=== PATIENT | male | born 1965 | race Caucasian/White ===

== ENCOUNTER 2022-11-05 13:58 | Outpatient (CLI) | payer BC, SELFPAY ==
[2022-11-05 13:58] LABS: Albumin* 4.4 g/dL (3.3-5.0); Chloride* 102 mmol/L (96-114); Potassium* 4.5 mmol/L (3.6-5.1); Sodium* 140 mmol/L (135-149)
[2022-11-05 14:00] LABS: Cholesterol* 182 mg/dL (90-199); Creatinine* 0.8 mg/dL (0.5-1.5); Estimated Glomerular Filt Rate 102 ml/min
[2022-11-05 14:01] LABS: Alanine Aminotransferase* 21 U/L (4-50); Alkaline Phosphatase* 114 U/L (40-150); Aspartate Amino Transferase* 23 U/L (12-35); Bilirubin Total* 0.4 mg/dL (0.1-1.5); Blood Urea Nitrogen* 19 mg/dL (7-30); Carbon Dioxide* 32 mmol/L (20-32); Glucose* 98 mg/dL (60-115); Total Protein* 7.3 g/dL (6.0-8.3); Triglycerides* 137 mg/dL (40-149)
[2022-11-05 14:02] LABS: Calcium* 8.8 mg/dL (8.4-10.6); HDL Cholesterol* 57 mg/dL (>=40); LDL Cholesterol Calculated 98 mg/dL (<100)
[2022-11-05 14:33] LABS: PSA Screen* 0.89 ng/mL (0.10-4.00)
== END 2022-11-05 13:59 | disposition home or self-care (01) ==
PROVIDERS: PCP Family Medicine; Visit Provider Family Medicine
DX: Z00.00 Encounter for general adult medical examination without abnormal findings (principal); E78.5 Hyperlipidemia, unspecified; E66.9 Obesity, unspecified; G40.909 Epilepsy, unspecified, not intractable, without status epilepticus; F41.1 Generalized anxiety disorder; R33.9 Retention of urine, unspecified; Z12.5 Encounter for screening for malignant neoplasm of prostate
CPT/HCPCS: 80053; 80061; 84153

== ENCOUNTER 2023-06-23 13:15 | Outpatient (CLI) | payer BC, SELFPAY | END 2023-06-23 13:16 | disposition home or self-care (01) | PROVIDERS: PCP Family Medicine; Visit Provider Family Medicine | DX: R19.7 Diarrhea, unspecified (principal) | CPT/HCPCS: 83516; 86140; 86592; 86593; 86703; 86705; 86803; 87340; 87491; 87591 ==

== ENCOUNTER 2023-07-14 11:31 | Outpatient (CLI) | payer BC, SELFPAY ==
--- NOTE | 2023-07-14 07:54 | W.ANESCHARGE ---
Anesthesia Charges Start Date/Time Anesthesia Start Date: 07/14/23 Anesthesia Start Time: 12:17 Stop Date/Time Anesthesia Stop Date: 07/14/23 Anesthesia Stop Time: 13:12
--- NOTE | 2023-07-14 13:17 | W.ANESCHARGE ---
Anesthesia Charges Start Date/Time Anesthesia Start Date: 07/14/23 Anesthesia Start Time: 12:17 Stop Date/Time Anesthesia Stop Date: 07/14/23 Anesthesia Stop Time: 13:12
== END 2023-07-14 11:32 | disposition home or self-care (01) ==
LOC: OP CLINIC 11:32
PROVIDERS: PCP Family Medicine; Visit Provider Surgery
DX: Z12.11 Encounter for screening for malignant neoplasm of colon (principal); K63.5 Polyp of colon; K62.89 Other specified diseases of anus and rectum; Z86.010 Personal history of colon polyps
CPT/HCPCS: 45380; 45385; 811; 88305; 88342; J2704

== ENCOUNTER 2023-10-14 07:38 | Outpatient (CLI) | payer BC, SELFPAY | END 2023-10-14 07:39 | disposition home or self-care (01) | LOC: NFLDREF 22:53 | PROVIDERS: PCP Family Medicine; Referring Provider Family Medicine; Visit Provider Family Medicine | DX: Z00.00 Encounter for general adult medical examination without abnormal findings (principal); E78.5 Hyperlipidemia, unspecified; G40.909 Epilepsy, unspecified, not intractable, without status epilepticus; R33.9 Retention of urine, unspecified; Z12.5 Encounter for screening for malignant neoplasm of prostate | CPT/HCPCS: 80053; 80061; 80156; 84153 ==

== ENCOUNTER 2024-01-08 16:58 | Emergency (ER) | payer BC, SELFPAY ==
[2024-01-08 17:09] VITALS: BP 111/66; PULSE 72; RESP 16; TEMP 36.6; O2SAT 96; BMI 27.4
--- NOTE | 2024-01-08 17:22 | CRLHL7_ITS ---
For Patients: As a result of the Century Cures Act, medical imaging exams and procedure reports are released immediately into your electronic medical record. You may view this report before your referring provider. If you have questions, please contact your health care provider. INDICATION: Left leg pain and swelling. TECHNIQUE: Ultrasound venous duplex left lower extremity. Compression venous exam was performed using moreno-scale, color Doppler, and spectral Doppler analysis. COMPARISON: None. FINDINGS: RIGHT LOWER EXTREMITY: Common Femoral Vein: Fully compressible and demonstrates normal flow on color doppler imaging. LEFT LOWER EXTREMITY: Common Femoral Vein: Fully compressible and demonstrates normal flow on color doppler imaging. Deep Femoral Profunda Vein: Fully compressible and demonstrates normal flow on color doppler imaging. Proximal Superficial Femoral Vein: Fully compressible and demonstrates normal flow on color doppler imaging. Mid Superficial Femoral Vein: Fully compressible and demonstrates normal flow on color doppler imaging. Distal Superficial Femoral Vein: Fully compressible and demonstrates normal flow on color doppler imaging. Popliteal Vein: Fully compressible and demonstrates normal flow on color doppler imaging. Lower Calf: The posterior tibial and peroneal veins are fully compressible and demonstrate normal flow on color doppler imaging. Superficial Vein: The proximal greater saphenous vein it is not fully compressible 8 mm from the left common femoral vein Popliteal Fossa: No popliteal cyst. IMPRESSION: 1. Superficial thrombophlebitis within the proximal greater saphenous vein. 2. No deep vein thrombus within the right lower extremity. Dictated by Sebastien Feliciano MD @ 01/08/2024 6:22:10 PM (Electronically Signed)
--- NOTE | 2024-01-08 17:22 | ED.GENADULT ---
HPI - General Adult General Date Seen: 01/08/24 Chief complaint: Extremity Pain/Injury, Lower Stated complaint: possible blood clot in leg Time Seen by Provider: 01/08/24 17:14 Source: patient Mode of arrival: ambulatory Limitations: no limitations History of Present Illness HPI narrative: Patient is a 4-year-old male history of DVT, superficial thrombophlebitis presenting to the emergency department for left leg soreness. He states last night he noticed pain is area of swelling to his left inner thigh. He states he could feel what he believed to be a vessel that was hard and painful to palpation. Says the pain is otherwise tolerable. Had a previous DVT he he states which he is placed on Eliquis. He is no longer on the Eliquis. He went to urgent care today and was told to come to the emergency department for an ultrasound. Denies chest pain, shortness of breath, weakness, numbness, abdominal pain. No other concerns noted at this time Related Data Home Medications Medication Instructions Recorded Confirmed multivitamin (Multiple Vitamins 1 tab PO QDAY 11/07/22 01/08/24 tablet) vitamin B complex 1 tab PO QDAY 06/23/23 01/08/24 mesalamine 1.2 gram tablet,delayed 2.4 g PO QDAY 10/16/23 01/08/24 release cholecalciferol (vitamin D3) 25 25 mcg PO DAILY 01/08/24 01/08/24 mcg (1,000 unit) tablet (Vitamin D3) prednisone 10 mg tablet mg 01/08/24 Previous Rx's Medication Instructions Recorded carbamazepine 200 mg tablet 200 - 400 mg (1 - 2 x 200 mg) PO 10/16/23 TID #450 tabs citalopram 20 mg tablet 20 mg PO DAILY #90 tabs 10/16/23 simvastatin 20 mg tablet 20 mg PO .Bedtime #90 tabs 10/16/23 tamsulosin 0.4 mg capsule 0.8 mg (2 x 0.4 mg) PO DAILY #180 10/16/23 caps apixaban 5 mg (74 tabs) tablets in See Rx Instructions PO .COMPLEX 01/08/24 a dose pack (Eliquis DVT-PE Treat #74 ea 30D Start) Allergies Allergy/AdvReac Type Severity Reaction Status Date / Time codeine Allergy Mild Headache Verified 01/08/24 17:05 COLD MEDICINE Allergy Mild Uncoded 10/16/23 13:48 Review of Systems Narrative: Pertinent systems reviewed and otherwise negative unless stated in HPI PFSH PFSH Surgical History (Updated 11/07/22 @ 08:08 by Mariana Mensah ~ PSR) History of hernia repair (09/01/13) ?Z98.890 - Other specified postprocedural states (ICD-10) ?Z87.19 - Personal history of other diseases of the digestive system (ICD-10) Social History (Updated 10/16/23 @ 14:59 by Elma Srivastava ~ CTA) What is your current living situation?: I presently have a place to live Problems where you live: no known problems In the past 12 months, utilities in danger of being shut off: no In past 12 months, lack of transportation kept you from medical appts, meetings, work, or getting things needed for daily living: no In the past 12 mos, have been you worried that your food would run out before you had money to buy more?: never true In the past 12 mos, the food you bought just didn't last and you didn't have money to buy more?: never true Smoking Status: Never smoker How often do you have a drink containing alcohol: never AUDIT-C Alcohol total score: 0 Non-prescribed substance use: denies use How often does anyone, including family, friends and others, physically hurt you: never How often does anyone, including family, friends and others, insult or talk down to you: never How often does anyone, including family, friends and others, threaten you with harm: never How often does anyone, including family, friends and others, scream or curse at you: never Little interest or pleasure in doing things: not at all Feeling down, depressed, or hopeless: not at all Exam Narrative: Exam Narrative: Const: Well-nourished, Well-developed, in mild distress Eyes: PERRL, no conjunctival injection, and symmetrical lids HENT: Atraumatic external nose and ears. Moist mucous membranes. MSK:Extremities w/o deformity, Normal Active ROM, cord-like structure felt a left inner thigh consistent with where his pain is Skin: Warm, Dry. No rashes or lesions. Neuro: Normal Muscle tone, No focal neurological deficits. Psych: Awake, Alert, & Oriented x3. Appropriate mood and affect. Const: Vital Signs, click to edit/add: Vital Signs - 24 hr 01/08/24 17:09 Temperature 98 F Pulse Rate [Pulse Oximeter] 72 Respiratory Rate 16 Blood Pressure [Ri ght Upper Arm] 111/66 Pulse Oximetry 96 Oxygen Delivery Me thod Room Air Course Vital Signs Vital signs: Initial Vital Signs Temperature 98 F 01/08/24 17:09 Temperature Source Temporal Artery Scan 01/08/24 17:09 Pulse Rate 72 01/08/24 17:09 Pulse Rhythm Regular 01/08/24 17:09 Pulse Strength 3+ Normal 01/08/24 17:09 Respiratory Rate 16 01/08/24 17:09 Blood Pressure 111/66 01/08/24 17:09 Blood Pressure Mean 81 01/08/24 17:09 Blood Pressure Position Sitting 01/08/24 17:09 Pulse Oximetry 96 01/08/24 17:09 Oxygen Delivery Method Room Air 01/08/24 17:09 Vital Signs Temperature 98 F 01/08/24 17:09 Pulse Rate 72 01/08/24 17:09 Respiratory Rate 16 01/08/24 17:09 Blood Pressure 111/66 01/08/24 17:09 Pulse Oximetry 96 01/08/24 17:09 Oxygen Delivery Method Room Air 01/08/24 17:09 Temperature 98 F 01/08/24 17:09 Pulse Rate 72 01/08/24 17:09 Respiratory Rate 16 01/08/24 17:09 Blood Pressure 111/66 01/08/24 17:09 Pulse Oximetry 96 01/08/24 17:09 Oxygen Delivery Method Room Air 01/08/24 17:09 Medical Decision Making [facility] Narrative Medical decision making narrative: Patient is 58-year-old male presenting to the emergency department for concern of a DVT. There is a heart cord-like structure felt in his left inner thigh. This seems were concerning for air causes pain versus a superficial thrombophlebitis. We will order an ultrasound of that leg. No other concerns noted at this time. Is not having any chest pain or shortness of breath and PE is unlikely at this time so imaging for that is not necessary. Ultrasound was done showing a superficial thrombophlebitis 8 mm from the saphenous femoral junction. Due to that it is recommended we treat this as a DVT. Patient will be placed on Eliquis and was informed to follow-up with primary care provider. He is agreeable to this plan. Imaging Data Venous US: Radiologist's impression: RIGHT LOWER EXTREMITY: Common Femoral Vein: Fully compressible and demonstrates normal flow on color doppler imaging. LEFT LOWER EXTREMITY: Common Femoral Vein: Fully compressible and demonstrates normal flow on color doppler imaging. Deep Femoral Profunda Vein: Fully compressible and demonstrates normal flow on color doppler imaging. Proximal Superficial Femoral Vein: Fully compressible and demonstrates normal flow on color doppler imaging. Mid Superficial Femoral Vein: Fully compressible and demonstrates normal flow on color doppler imaging. Distal Superficial Femoral Vein: Fully compressible and demonstrates normal flow on color doppler imaging. Popliteal Vein: Fully compressible and demonstrates normal flow on color doppler imaging. Lower Calf: The posterior tibial and peroneal veins are fully compressible and demonstrate normal flow on color doppler imaging. Superficial Vein: The proximal greater saphenous vein it is not fully compressible 8 mm from the left common femoral vein Popliteal Fossa: No popliteal cyst. IMPRESSION: 1. Superficial thrombophlebitis within the proximal greater saphenous vein. 2. No deep vein thrombus within the right lower extremity. Dictated by Sebastien Feliciano MD @ 01/08/2024 6:22:10 PM Discharge Plan Discharge Clinical Impression: Superficial phlebitis and thrombophlebitis of left lower extremity Patient Disposition: Home, Self-Care Condition: Stable Instructions: Superficial Thrombophlebitis (ED) Additional Instructions: Take the Eliquis as directed. Return to the emergency department for new or worsening symptoms. Follow-up with your primary care provider in the next week or 2 to determine if they want to keep you on the blood thinner. Prescriptions: New Eliquis DVT-PE Treat 30D Start 5 mg (74 tabs) tablets,dose pack See Rx Instructions .ROUTE .COMPLEX Qty: 74 0RF Rx Instructions: orally per package directions No Action multivitamin [Multiple Vitamins] Tablet 1 tab PO QDAY vitamin B complex Tablet 1 tab PO QDAY mesalamine 1.2 gram tablet,delayed release (DR/EC) 2.4 g PO QDAY carbamazepine 200 mg tablet 200 - 400 mg PO TID Qty: 450 4RF Rx Instructions: take 2 tabs in AM, 1 tab midday, and 2 tabs in PM citalopram 20 mg tablet 20 mg PO DAILY Qty: 90 3RF simvastatin 20 mg tablet 20 mg PO .Bedtime Qty: 90 3RF tamsulosin 0.4 mg capsule 0.8 mg PO DAILY Qty: 180 3RF cholecalciferol (vitamin D3) [Vitamin D3] 25 mcg (1,000 unit) tablet 25 mcg PO DAILY prednisone 10 mg tablet Patient Comments: PLEASE SEE ATTACHED FOR DETAILED DIRECTIONS Follow Up/Referrals: Moreno Dangelo MD [Primary Care Provider] - Stand Alone Forms: [employer] Info Instructions
--- OUTSIDE RECORDS SUMMARY | 2024-01-08 18:05 | XMS_ITS | Clinical Summary ---
Author Name Unknown Organization [facility] Address [place], [place] [address] Care Team Providers Care Benefits Clerk Name Role Phone Cyrus Dangelo Primary Care Provider Unavail able Allergies Active Allergy Reactions Criticality Noted Date Comments Codeine Headache 02/26/2007 Medications Medication Sig Dispensed Refills Start Date End Date Status TEGRETOL 200 MG ORAL TAB 5 po qd ? 0 12/01/1998 Active multivitamin (MVI) tablet Take 1 tablet by mouth once daily. 0 09/17/2010 Active simvastatin (ZOCOR) 20 mg tablet Take 20 mg by mouth at bedtime. 0 Active citalopram (CELEXA) 10 mg tablet 1 tablet at bedtime. 0 03/13/2015 Active tamsulosin (FLOMAX) 0.4 mg capsuleIndications:B enign prostatic hyperplasia with lower urinary tract symptoms, unspecified morphology TAKE 2 CAPSULES DAILY 180 capsule 0 05/10/2016 Active Active Problems Problem Noted Date Diagnosed Date Malignant neoplasm of dome of urinary bladder Immunizations Name Administration Dates Next Due HepA-HepB (Twinrix) 02/10/2014 Td (Age >=7 Years) 08/25/2007 Tdap 07/03/2022,08/08/2015 Social History Tobacco Use Types Packs/Day Years Used Date Smoking Tobacco: Former Cigarettes Q uit: 12/01/1999 Smokeless Tobacco: Never Alcohol Use Standard Drinks/Week Comments No 0 (1 standard drink = 0.6 oz pure alcohol) Alcoholic Drinks/day: rare, maybe 1/mo Sex and Gender Information Value Date Recorded Sex Assigned at Not on file Gender Identity Not on file Sexual Orientation Not on file Obstetrics History Last Filed Vital Signs Vital Sign Reading Time Taken Comments Blood Pressure 123/77 07/03/2022 8:58 AM CDT Pulse 56 07/03/2022 8:58 AM CDT Temperature 36 ??C (96.8 ??F) 07/03/2022 8:58 AM CDT Respiratory Rate 12 07/03/2022 8:58 AM CDT Oxygen Saturation 96% 07/03/2022 8:58 AM CDT Inhaled Oxygen Concentration - - Weight 110 kg (242 lb 9.6 oz) 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 Height 190.5 cm (6' 3) 10/14/2018 12:39 PM PELLET PRESS OPERATOR Body Mass Index 30.32 10/14/2018 12:39 PM PELLET PRESS OPERATOR Plan of Treatment Health Maintenance Due Date Last Done Comments COVID-19 vaccine series (#1) 02/02/1964 Depression screening for age 12+ 1975 HIV for age 15-65 1978 Hepatitis C screening for ag e 18-79 1981 Colonoscopy through age 75 2008 Lipids for age 45-75 2008 Zoster (shingles) series for age 50+ (1 of 2) 2013 BMI (ht and wt on same day) for age 18+ 10/14/2019 10/14/2018 Influenza for age 50-64 08/01/2023 Tetanus booster 07/03/2032 07/03/2022, 08/08/2015, 08/25/2007 Tdap Completed 07/03/2022, 08/08/2015 Pneumococcal series for age 6-64 Aged Out No longer eligible b ased on patient's age to complete this topic Advance Directives Latest Code Status on File Code Status Date Activated Date Inactivated Comments Full Code 03/28/2015 9:34 AM 03/28/2015 6:58 PM Code Status History Code Status Date Activated Date Inactivated Comments Full Code 03/24/2014 8:44 AM 03/24/2014 6:52 PM Care Teams Benefits Clerk Relationship Specialty Start Date End Date Cyrus Dangelo PCP - General 02/26/07
== END 2024-01-08 18:58 | disposition home or self-care (01) ==
PROVIDERS: Emergency Provider Student in an Organized Health Care Education/Training Program; PCP Family Medicine
DX: I80.02 Phlebitis and thrombophlebitis of superficial vessels of left lower extremity (principal)
CPT/HCPCS: 93971; 99282; 99284

== ENCOUNTER 2024-10-14 07:33 | Outpatient (CLI) | payer BC, SELFPAY ==
--- OUTSIDE RECORDS SUMMARY | 2024-10-18 12:29 | XMS_ITS | Clinical Summary ---
Author Organization [facility] Address [place], [place] [address] Care Team Providers Care Patient Services Technician Name Role Phone Cyrus Dangelo Primary Care [...] Take 20 mg by mouth at bedtime. Active citalopram (CELEXA) 10 mg tablet 1 tablet at bedtime. 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 Height 190.5 cm (6' 3) 10/14/2018 12:39 PM FOREST ENGINEER Body Mass Index 30.32 10/14/2018 12:39 PM FOREST ENGINEER Plan of Treatment Health Maintenance Due Date Last Done Comments Depression screening for age 12+ 1975 HIV for age 15-65 1978 Hepatitis C screening for ag e 18-79 1981 Colonoscopy through age 75 2008 Lipids for age 45-75 2008 Zoster (shingles) series for age 50+ (1 of 2) 2013 BMI (ht and wt on same day) for age 18+ 10/14/2019 10/14/2018 COVID-19 vaccine series (2023- season) 2024 Influenza for age 50-64 08/01/2024 Tetanus booster 07/03/2032 07/03/2022, 08/08/2015, 08/25/2007 Tdap Completed 07/03/2022, 08/08/2015 Pneumococcal series for age 6-64 Aged Out No longer eligible b ased on patient's age to complete this topic Advance Directives * Full Code (Latest Code Status on File) Date Activated Date Inactivated Comments 03/28/2015 9:34 AM 03/28/2015 6:58 PM * Full Code Date Activated Date Inactivated Comments 03/24/2014 8:44 AM 03/24/2014 6:52 PM Care Teams Patient Services Technician Relationship Specialty Start Date End Date Cyrus Dangelo PCP - General 02/26/07
== END 2024-10-14 07:34 | disposition home or self-care (01) ==
LOC: NFLDREF 10-18 12:27
PROVIDERS: PCP Family Medicine; Referring Provider Family Medicine; Visit Provider Family Medicine
DX: E78.5 Hyperlipidemia, unspecified (principal); G40.909 Epilepsy, unspecified, not intractable, without status epilepticus; Z12.5 Encounter for screening for malignant neoplasm of prostate; Z79.899 Other long term (current) drug therapy
CPT/HCPCS: 80053; 80061; 80156; G0103

== ENCOUNTER 2025-02-16 12:03 | Inpatient (IN) | payer BC, SELFPAY ==
--- OUTSIDE RECORDS SUMMARY | 2025-02-16 12:05 | XMS_ITS | Clinical Summary ---
Author Organization [facility] Address [address] [place] [id number] Care Team Providers Care Child Care Leader Name Role Phone Cyrus Dangelo Primary Care Provider Unavail able Allergies Active Allergy Reactions Criticality Noted Date Comments Codeine Headache 02/26/2007 Medications TEGRETOL 200 MG ORAL TAB 5 po qd ? 0 9 Active multivitamin (MVI) tablet Take 1 tablet by mouth once daily. 0 0 Active simvastatin (ZOCOR) 20 mg tablet Take 20 mg by mouth at bedtime. Active citalopram (CELEXA) 10 mg tablet 1 tablet at bedtime. 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 Height 190.5 cm (6' 3) 10/14/2018 12:39 PM LABORER 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 Body Mass Index 30.32 10/14/2018 12:39 PM LABORER PIPELINE Plan of Treatment Health Maintenance Due Date Last Done Comments Depression screening for age 12+ 1975 HIV for age 15-65 1978 Hepatitis C screening for age 18-79 1981 Colonoscopy through age 75 2008 Lipids for age 45-75 2008 Pneumococcal series for age 50+ (1 of 1 - PCV) 2013 Zoster (shingles) series for age 50+ (1 of 2) 2013 BMI (ht and wt on same day) for age 18+ 10/14/2019 10/14/2018 COVID-19 vaccine series (2023- season) 2024 Influenza Vaccine (#1) 2024 Tetanus booster 07/03/2032 07/03/2022, 0907/2015, 08/25/2007 RSV vaccine for adults or pr egnancy (1 - 1-dose 75+ series) 2038 Tdap Completed 07/03/2022, 08/08/[address] [place] [address] [place] [address] [place] [address] [employer] [place] Advance Directives * Full Code (Latest Code Status on File) Date Activated Date Inactivated Comments 03/28/2015 9:34 AM 03/28/2015 6:58 PM * Full Code Date Activated Date Inactivated Comments 03/24/2014 8:44 AM 03/24/2014 6:52 PM Care Teams Child Care Leader Relationship Specialty Start Date End Date Cyrus Dangelo PCP - General 02/26/07
[2025-02-16 12:10] VITALS: BP 122/71; PULSE 84; RESP 16; TEMP 36.6; O2SAT 95; BMI 29.5
--- NOTE | 2025-02-16 12:36 | CRLHL7_ITS ---
For Patients: As a result of the Century Cures Act, medical imaging exams and procedure reports are released immediately into your electronic medical record. You may view this report before your referring provider. If you have questions, please contact your health care provider. INDICATION: Abdominal pain, constipation. TECHNIQUE: Abdomen four views. COMPARISON: None. FINDINGS: Multiple dilated small bowel loops with associated air-fluid levels at varying locations throughout the abdomen, with small bowel dilatation measuring greater than 4 cm. No evidence of free intraperitoneal gas. Postoperative changes in the epigastric region and pelvis. Soft tissues elsewhere as imaged are unremarkable. Lung bases are clear. Degenerative changes spine and pelvis. IMPRESSION: Findings worrisome for small bowel obstruction. No evidence of free intraperitoneal gas. CT of the abdomen and pelvis with IV contrast may prove useful for further evaluation. Dictated by Gavino Cesar MD @ 02/16/2025 1:25:39 PM (Electronically Signed)
--- NOTE | 2025-02-16 12:37 | ED_ITS ---
HPI - General Adult General Chief complaint: Abdominal Pain Stated complaint: constipation Time Seen by Provider: 02/16/25 12:21 History of Present Illness HPI narrative: Patient is a 59 year white male with history of epilepsy and also a proctitis/colitis who presents with constipation for last couple of days. He tried to have a bowel movement last night and again this morning, got sweaty with that and felt near syncopal. He has not had trouble with constipation very often. 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 He has had no fevers. No chills. No chest pain or breathing problem. It has been a couple days since he had a bowel movement of normal amount. He has had some feeling of abdominal tenderness and distention. Still passing flatus. Related Data Home Medications ?Medication ?Instructions ?Recorded ?Confirmed multivitamin (Multiple Vitamins 1 tab PO QDAY 11/07/22 01/28/25 tablet) vitamin B complex 1 tab PO QDAY 06/23/23 01/28/25 cholecalciferol (vitamin D3) 25 25 mcg PO DAILY 01/08/24 01/28/25 mcg (1,000 unit) tablet (Vitamin D3) vedolizumab 300 mg intravenous 300 mg IV Q8W 10/20/24 01/28/25 solution (Entyvio) Previous Rx's ?Medication ?Instructions ?Recorded carbamazepine 200 mg tablet 200 - 400 mg (1 - 2 x 200 mg) PO 10/20/24 TID #450 tabs citalopram 20 mg tablet 20 mg PO DAILY #90 tabs 10/20/24 sildenafil 50 mg tablet 50 - 100 mg (1 - 2 x 50 mg) PO 10/20/24 QDAY PRN sexual activity #30 tabs simvastatin 20 mg tablet 20 mg PO .Bedtime #90 tabs 10/20/24 tamsulosin 0.4 mg capsule 0.8 mg (2 x 0.4 mg) PO DAILY #180 10/20/24 caps benzonatate 200 mg capsule 200 mg PO BID-TID PRN cough #30 01/28/25 caps Allergies Allergy/AdvReac Type Severity Reaction Status Date / Time codeine Allergy Mild Headache Verified 01/28/25 12:39 COLD MEDICINE Allergy Mild Uncoded 01/28/25 12:39 Review of Systems Status of ROS: Reports: 6 or more systems reviewed and unremarkable except as noted in History and below PFSH PFS Surgical History History of hernia repair (09/01/13) ?Z98.890 - Other specified postprocedural states (ICD-10) ?Z87.19 - Personal history of other diseases of the digestive system (ICD-10) Social History What is your current living situation?: I presently have a place to live Problems where you live: no known problems In the past 12 months, utilities in danger of being shut off: no In past 12 months, lack of transportation kept you from medical appts, meetings, work, or getting things needed for daily living: no In the past 12 mos, have been you worried that your food would run out before you had money to buy more?: never true In the past 12 mos, the food you bought just didn't last and you didn't have money to buy more?: never true Smoking Status: Never smoker How often do you have a drink containing alcohol: never AUDIT-C Alcohol total score: 0 Non-prescribed substance use: denies use How often does anyone, including family, friends and others, physically hurt you : never How often does anyone, including family, friends and others, insult or talk down to you: never How often does anyone, including family, friends and others, threaten you with harm: never How often does anyone, including family, friends and others, scream or curse at you: never Exam Narrative: Exam Narrative: Objective: Patient's vital signs look within the within normal limits he is afebrile Alert orient x3 no distress Pulse regular Abdomen nontender no rebound no palpable masses bowel sounds normoactive He denies pain Extremities normal neurologic nonfocal Const: Vital Signs, click to edit/add: Vital Signs - 24 hr 02/16/25 12:10 02/16/25 15:26 Temperature 97.8 F Pulse Rate [Pulse Oximeter] 84 63 Respiratory Rate 16 16 Blood Pressure [Ri ght Upper Arm] 122/71 116/81 Pulse Oximetry 95 97 Oxygen Delivery Me thod Room Air Room Air Course Vital Signs Vital signs: Initial Vital Signs Temperature 97.8 F 02/16/25 12:10 Temperature Source Temporal Artery Scan 02/16/25 12:10 Pulse Rate 84 02/16/25 12:10 Respiratory Rate 16 02/16/25 12:10 Blood Pressure 122/71 02/16/25 12:10 Blood Pressure Mean 88 02/16/25 12:10 Blood Pressure Position Sitting 02/16/25 12:10 Pulse Oximetry 95 02/16/25 12:10 Oxygen Delivery Method Room Air 02/16/25 12:10 Vital Signs Temperature 97.8 F 02/16/25 12:10 Pulse Rate 84 02/16/25 12:10 Respiratory Rate 16 02/16/25 12:10 Blood Pressure 122/71 02/16/25 12:10 Pulse Oximetry 95 02/16/25 12:10 Oxygen Delivery Method Room Air 02/16/25 12:10 Temperature 97.8 F 02/16/25 12:10 Pulse Rate 63 02/16/25 15:26 Respiratory Rate 16 02/16/25 15:26 Blood Pressure 116/81 02/16/25 15:26 Pulse Oximetry 97 02/16/25 15:26 Oxygen Delivery Method Room Air 02/16/25 15:26 Medications Administered Medications: Discontinued Medications Generic Name Dose Route Start Last Admin Trade Name Freq PRN Reason Stop Dose Admin Docusate Sodium/Benzocaine 5 ml 02/16/25 12:36 02/16/25 13:17 Docusate Sodium/Benzocaine 5 Ml Enema CO 02/16/25 12:37 5 ml ONCE ONE Administration Sodium Chloride 1,000 mls @ 6,000 mls/hr 02/16/25 13:30 02/16/25 15:29 0.9 % Sodium Chloride 1000 Ml IV 02/16/25 13:39 Infused .Q10M FRAN Infusion Medical Decision Making [facility] Narrative Medical decision making narrative: 59-year-old male with ulcerative proctitis/colitis with constipation. At this point he does not appear to have a flare of ulcerative colitis. This is with mutual decision making we decided to do a flat upright x-ray and give him an Enemeez many enema to see if that would relieve his symptoms. If it does not then blood work and a CT scan would be indicated. Again he does not feel this is a flare of ulcerative colitis and would like to try the simple approach. I think that is reasonable if he does get results then increase fluid fiber and perhaps MiraLax once or twice daily for the next few days would be reasonable. He was comfortable plan. Will see how he responds. Addendum 1:30 p.m.: The patient's flat and upright abdominal film is worrisome for small bowel obstruction per my read, Radiology confirms, recommend CT scan with IV contrast. Will check electrolytes and labs and get IV fluids stab wishes well. Addendum 1:46 p.m. the patient did get some relief from his enema, but his x-ray by my review shows some air-fluid levels. Radiology was concerned about a small bowel obstruction. Will get a CT scan with IV contrast of his abdomen pelvis. Will check laboratory studies, IV fluid. His pain is improved not requesting pain medicine at this time. Disposition pending findings. Addendum to 40 p.m.: The patient has a small bowel obstruction the transition point the right lower abdomen. He will need to be admitted the hospital pr obable surgical consult as hospitalist discretion. IV pain medicine as needed. Addendum 2:45 p.m. there is no hospital beds available right now, there probably will be 100 about 11 tonight. Will have hospitalist get back to us about that. I have contacted the nursing supervisor hanging and trimming and on-call senior pensions administrator. There has been a real back log of transfers anywhere and so will see if we can get the pat ient in here, will notify the surgeons of her admission as well. I did have a personal discussion with Dr. Fairchild General surgery who was available should it be needed for consultation in the hospital. Lab Data Labs: Lab Results 02/16/25 02/16/25 Range/Units 13:36 13:40 WBC 8.33 (4.50-11.00) K/uL RBC 5.32 (4.30-5.90) m/uL Hgb 15.9 (13.5-17.5) gm/dL Hct 47.6 (37.0-53.0) % MCV 90 (80-100) fL MCH 30 (26-34) pg MCHC 33 (32-36) gm/dL RDW Coeff of Dwight 12.3 (11.5-15.5) % Plt Count 261 (140-440) K/uL Neut % (Auto) 64.4 (42.0-72.0) % Lymph % (Auto) 25.5 (20-44) % Meagher % (Auto) 8.9 (0.0-11.0) % Eos % (Auto) 1.0 (0.0-7.0) % Baso % (Auto) 0.1 (0.0-3.0) % Neut # (Auto) 5.37 (1.7-7.0) K/uL Lymph # (Auto) 2.12 (0.90-2.90) K/uL Meagher # (Auto) 0.70 (0.00-0.90) K/UL Eos # (Auto) 0.08 (0.00-0.50) K/uL Baso # (Auto) 0.01 (0.00-0.30) K/uL Abs Immat Gran (auto) 0.01 (0.00-0.30) K/uL Imm/Tot Granulo (auto) 0.1 % Sodium 134 L (135-149) mmol/L Potassium 4.4 (3.6-5.1) mmol/L Chloride 99 (96-114) mmol/L Carbon Dioxide 25 (20-32) mmol/L Anion Gap 10 (7-15) mEq/L BUN 16 (7-30) mg/dL Creatinine 0.9 (0.5-1.5) mg/dL Estimated Creat Clear 90.19 Estimated GFR 97 ml/min Glucose 104 (60-115) mg/dL Calcium 8.6 (8.4-10.6) mg/dL C-Reactive Protein 2.6 H (0.5-1.0) mg/dL POC Creatinine 1.0 (0.6-1.3) mg/dl Discharge Plan Discharge Clinical Impression: Constipation, Small bowel obstruction Patient Disposition: Admitted As Observation
[2025-02-16] MEDS: DOCUSATE SODIUM/BENZOCAINE 5 ML ENEMA PR (13:17)
--- NOTE | 2025-02-16 13:27 | CRLHL7_ITS ---
For Patients: As a result of the Cures Act, medical imaging exams and procedure reports are released immediately into your electronic medical record. You may view this report before your referring provider. If you have questions, please contact your health care provider. INDICATION: Abdominal cramping times 2-3 days. TECHNIQUE: CT abdomen and pelvis acquired with 112 cc of Isovue 370 IV contrast. COMPARISON: CT abdomen and pelvis 10/30/2020. FINDINGS: Lower chest: Unremarkable. Liver: No focal lesion. Trace perihepatic ascites near the dome. Spleen: Unremarkable. Pancreas: Unremarkable. Gallbladder and bile ducts: No calcified stones or biliary ductal dilatation. Kidneys: Stable left renal cyst. No urolithiasis or hydronephrosis. Adrenal glands: Unremarkable. GI tract: Multiple dilated fluid-filled small bowel loops in the abdomen with transition point in the right abdomen, consistent with obstruction. Small bowel dilatation measures up to 4.2 cm. Mild right lower quadrant fluid and subtle mesenteric heterogeneity. No pneumatosis or free intraperitoneal gas. Normal appendix. Distal colonic diverticulosis without evidence of acute diverticulitis. Lymph nodes: No pathologic lymphadenopathy. Vascular structures: Mild atherosclerotic disease. Abdominal vasculature as imaged is otherwise unremarkable. Pelvic Organs: Prostate and bladder as imaged are unchanged. Bones: No acute or suspicious osseous abnormality. Degenerative changes spine and pelvis. IMPRESSION: Small-bowel obstruction with transition point in the right abdomen. Trace associated ascites. No pneumatosis or free intraperitoneal gas. Dictated by Gavino Cesar MD @ 02/16/2025 2:30:49 PM Please note that all CT scans at this facility use dose modulation, iterative reconstruction, and/or weight-based dosing when appropriate to reduce radiation dose to as low as reasonably achievable. Dictated by: Gavino Cesar MD @ 02/16/2025 14:31:15 (Electronically Signed)
--- OUTSIDE RECORDS SUMMARY | 2025-02-16 13:41 | XMS_ITS | Clinical Summary ---
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
[2025-02-16 13:49] LABS: Basophils Absolute Auto 0.01 K/uL (0.00-0.30); Basophils Percent Auto 0.1 % (0.0-3.0); Eosinophils Absolute Auto 0.08 K/uL (0.00-0.50); Hematocrit 47.6 % (37.0-53.0); Hemoglobin* 15.9 gm/dL (13.5-17.5); Immature Granulocytes Abs Auto 0.01 K/uL (0.00-0.30); Immature Granulocytes Pct Auto 0.1 %; Lymphocytes Absolute Auto 2.12 K/uL (0.90-2.90); Lymphocytes Percent Auto 25.5 % (20-44); Mean Corpuscular HGB Conc 33 gm/dL (32-36); Mean Corpuscular Hemoglobin 30 pg (26-34); Mean Corpuscular Volume 90 fL (80-100); Monocytes Percent Auto 8.9 % (0.0-11.0); Neutrophils Absolute Auto 5.37 K/uL (1.7-7.0); Neutrophils Percent Auto 64.4 % (42.0-72.0); Platelet Count* 261 K/uL (140-440); RDW Coefficient of Variation % 12.3 % (11.5-15.5); Red Blood Count 5.32 m/uL (4.30-5.90); White Blood Count* 8.33 K/uL (4.50-11.00)
[2025-02-16 13:51] LABS: Slide Review Reflex No
[2025-02-16 14:03] LABS: Chloride* 99 mmol/L (96-114); Potassium* 4.4 mmol/L (3.6-5.1); Sodium* 134 mmol/L (135-149)
[2025-02-16 14:06] LABS: Anion Gap 10 mEq/L (7-15); Blood Urea Nitrogen* 16 mg/dL (7-30); Calcium* 8.6 mg/dL (8.4-10.6); Carbon Dioxide* 25 mmol/L (20-32); Creatinine* 0.9 mg/dL (0.5-1.5); Est. Creatinine Clearance* 90.19; Estimated Glomerular Filt Rate 97 ml/min; Glucose* 104 mg/dL (60-115)
[2025-02-16 14:09] LABS: C Reactive Protein* 2.6 mg/dL (0.5-1.0)
[2025-02-16] MEDS: 0.9 % SODIUM CHLORIDE 1000 ml 1,000 ML 6000 ML IV (14:20)
[2025-02-16 15:26] VITALS: BP 116/81; PULSE 63; RESP 16; O2SAT 97
[2025-02-16 16:40] VITALS: BP 117/80; PULSE 75; RESP 18; TEMP 36.9; O2SAT 96; BMI 29.5
--- NOTE | 2025-02-16 16:58 | PM.IMHP1 ---
Assessment and Plan Assessment and plan (1) Small bowel obstruction: Problem comment: - H/o UC, colonoscopy last year, only abdominal surgery is h/o left inguinal hernia repair (pt thinks mesh was used, but is not sure). - general surgery aware - Ambulate x 3 tonight in [place] Status: Acute (2) Ulcerative proctitis: Problem comment: - Sees [facility], vedolizumab infusions monthly, last one was 02/02/25 - not currently having a flare as far as patient is aware Status: Chronic (3) Epilepsy: Problem comment: - on carbamazepine, last seizure was 20 years ago - continue carbamazepine orally for now. If needs NGT or appears to not be absorbing well, this can be given IV instead Status: Chronic (4) Hyperlipidemia: Problem comment: - continue statin for now, hold if NGT placed Status: Chronic Plan VTE risk low, ambulate frequently Hospitalist- H&P: HPI History of Present Illness Time Seen by Provider: 16:55 Date Seen: 02/16/25 Chief complaint: constipation Narrative: Mark Way is a 59 year old male with a h/o UC for which he is on monthly immunotherapy, epilepsy and hyperlipidemia who per presented through the emergency department today for intermittent abdominal pain. For the past few days he has had bloating and intermittent sharp abdominal pains. He also notes constipation stating that he has been sitting on the toilet but cannot produce any bowel movements. Overnight he did have some flatus while sitting on the toilet along with this very small amount of diarrhea. He denies any hematochezia or melena. This morning he was nauseous, but did not have any vomiting. He denies fevers. He has a history of ulcerative colitis which was diagnosed on colonoscopy last year. He sees [facility] and has been getting vedolizumab infusions monthly. He also tells me that he has a trip to [facility] planned for March 10 and he is concerned that this might interfere with his trip. Review of Systems Status of ROS: Reports: 10 or more systems reviewed and unremarkable except as noted in History and below [facility] Medical History (Updated 02/16/25 @ 18:25 by Ann Jackson MD) Tobacco use (09/01/13) ?Z72.0 - Tobacco use (ICD-10) Erectile dysfunction ?N52.9 - Male erectile dysfunction, unspecified (ICD-10) Hyperlipidemia ?E78.5 - Hyperlipidemia, unspecified (ICD-10) MARYLU (generalized anxiety disorder) ?F41.1 - Generalized anxiety disorder (ICD-10) Chronic aneurysm of right popliteal vein ?I86.8 - Varicose veins of other specified sites (ICD-10) Low back pain ?M54.50 - Low back pain, unspecified (ICD-10) Urinary retention ?R33.9 - Retention of urine, unspecified (ICD-10) Adenomatous colon polyp ?D12.6 - Benign neoplasm of colon, unspecified (ICD-10) Simple obesity (09/01/13) ?E66.9 - Obesity, unspecified (ICD-10) Epilepsy (09/01/13) ?G40.909 - Epilepsy, unspecified, not intractable, without status epilepticus (ICD-10) Achalasia of esophagus ?K22.0 - Achalasia of cardia (ICD-10) Seizure disorder ?G40.909 - Epilepsy, unspecified, not intractable, without status epilepticus (ICD-10) Superficial phlebitis and thrombophlebitis of right lower extremity ?I80.01 - Phlebitis and thrombophlebitis of superficial vessels of right lower extremity (ICD-10) Malignant neoplasm of urinary bladder (09/01/13) ?C67.9 - Malignant neoplasm of bladder, unspecified (ICD-10) Ulcerative proctitis ?K51.20 - Ulcerative (chronic) proctitis without complications (ICD-10) Surgical History (Updated 02/16/25 @ 17:08 by Ann Jackson MD) Status post tonsillectomy and adenoidectomy ?Z90.89 - Acquired absence of other organs (ICD-10) History of esophageal surgery ?Z98.890 - Other specified postprocedural states (ICD-10) History of hernia repair (09/01/13) ?Z98.890 - Other specified postprocedural states (ICD-10) ?Z87.19 - Personal history of other diseases of the digestive system (ICD-10) Social History (Updated 02/16/25 @ 17:13 by Ann Jackson MD) Narrative: Lives alone. Has support in the area. 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 Quit tobacco use >20 years ago. Used to smoke 1/2ppd for 25 years. Rare EtOH. Denies recreational drug. FULL CODE. What is your current living situation?: I presently have a place to live Problems where you live: no known problems Problems where you live details: none In the past 12 months, utilities in danger of being shut off: no In past 12 months, lack of transportation kept you from medical appts, meetings, work, or getting things needed for daily living: no In the past 12 mos, have been you worried that your food would run out before you had money to buy more?: never true In the past 12 mos, the food you bought just didn't last and you didn't have money to buy more?: never true Highest level of school completed/degree received: Associate degree: occupational, technical, vocational program Smoking Status: Never smoker How often do you have a drink containing alcohol: never How many standard drinks containing alcohol do you have on a typical day: 1 or 2 AUDIT-C Alcohol total score: 0 Non-prescribed substance use: denies use Caffeine: Yes (coffee) How often does anyone, including family, friends and others, physically hurt you: never How often does anyone, including family, friends and others, insult or talk down to you: never How often does anyone, including family, friends and others, threaten you with harm: never How often does anyone, including family, friends and others, scream or curse at you: never service: No Meds Home Medications and Allergies Home Medications ?Medication ?Instructions ?Recorded ?Confirmed ?Type multivitamin (Multiple Vitamins 1 tab PO QDAY 11/07/22 02/16/25 History tablet) vedolizumab 300 mg intravenous 300 mg IV Q4W 10/20/24 02/16/25 History solution (Entyvio) simvastatin 20 mg tablet 20 mg PO HS 02/16/25 02/16/25 History Allergies Allergy/AdvReac Type Severity Reaction Status Date / Time codeine Allergy Mild Headache Verified 01/28/25 12:39 COLD MEDICINE Allergy Mild Uncoded 01/28/25 12:39 Exam Narrative: Exam Narrative: General: No acute distress. Awake alert oriented x3. HEENT: Normocephalic atraumatic, pupils equally round and reactive to light and accommodation. Oropharynx clear. Mucous membranes are moist. No cervical lymphadenopathy, thyromegaly or carotid bruits. No JVD. Cardiovascular: Regular rate and rhythm. No murmurs, gallops, or rubs. Chest: No increased work of breathing. Clear to auscultation bilaterally. No crackles or wheezes. Abdomen: Bowel sounds present. Soft, distended, tender in the mid abdomen without rebound tenderness or guarding. No hepatosplenomegaly or masses. Extremities: No edema, no cyanosis or clubbing. Skin: No jaundice, no pallor, no rashes. Const: Vital Signs, click to edit/add: Vital Signs - 24 hr 02/16/25 12:10 02/16/25 15:26 Temperature 97.8 F Pulse Rate [Pulse Oximeter] 84 63 Respiratory Rate 16 16 Blood Pressure [Ri ght Upper Arm] 122/71 116/81 Pulse Oximetry 95 97 Oxygen Delivery Me thod Room Air Room Air Hospitalist - H&P: Result Labs Labs: Short CBC 02/16/25 Range/Units 13:40 WBC 8.33 (4.50-11.00) K/uL Hgb 15.9 (13.5-17.5) gm/dL Hct 47.6 (37.0-53.0) % Plt Count 261 (140-440) K/uL BMP 02/16/25 13:40 Sodium 134 L Potassium 4.4 Chloride 99 Carbon Dioxide 25 BUN 16 Creatinine 0.9 Glucose 104 Calcium 8.6 Ordering Physician: Jaguar August M.D. Date of Service: 02/16/25 Procedure(s): XR abdomen min 2V Accession Number(s): [id number] cc: Moreno Dangelo M.D.; Jaguar August M.D.~ For Patients: As a result of the 21st Century Cures Act, medical imaging exams and procedure reports are released immediately into your electronic medical record. You may view this report before your referring provider. If you have questions, please contact your health care provider. INDICATION: Abdominal pain, constipation. TECHNIQUE: Abdomen four views. COMPARISON: None. FINDINGS: Multiple dilated small bowel loops with associated air-fluid levels at varying locations throughout the abdomen, with small bowel dilatation measuring greater than 4 cm. No evidence of free intraperitoneal gas. Postoperative changes in the epigastric region and pelvis. Soft tissues elsewhere as imaged are unremarkable. Lung bases are clear. Degenerative changes spine and pelvis. IMPRESSION: Findings worrisome for small bowel obstruction. No evidence of free intraperitoneal gas. CT of the abdomen and pelvis with IV contrast may prove useful for further evaluation. Dictated by Gavino Cesar MD @ 02/16/2025 1:25:39 PM (Electronically Signed) Ordering Physician: Jaguar August M.D. Date of Service: 02/16/25 Procedure(s): CT abdomen pelvis w con Accession Number(s): [id number] cc: Moreno Dangelo M.D.; Jaguar August M.D.~ For Patients: As a result of the Cures Act, medical imaging exams and procedure reports are released immediately into your electronic medical record. You may view this report before your referring provider. If you have questions, please contact your health care provider. INDICATION: Abdominal cramping times 2-3 days. TECHNIQUE: CT abdomen and pelvis acquired with 112 cc of Isovue 370 IV contrast. COMPARISON: CT abdomen and pelvis 10/30/2020. FINDINGS: Lower chest: Unremarkable. Liver: No focal lesion. Trace perihepatic ascites near the dome. Spleen: Unremarkable. Pancreas: Unremarkable. Gallbladder and bile ducts: No calcified stones or biliary ductal dilatation. Kidneys: Stable left renal cyst. No urolithiasis or hydronephrosis. Adrenal glands: Unremarkable. GI tract: Multiple dilated fluid-filled small bowel loops in the abdomen with transition point in the right abdomen, consistent with obstruction. Small bowel dilatation measures up to 4.2 cm. Mild right lower quadrant fluid and subtle mesenteric heterogeneity. No pneumatosis or free intraperitoneal gas. Normal appendix. Distal colonic diverticulosis without evidence of acute diverticulitis. Lymph nodes: No pathologic lymphadenopathy. Vascular structures: Mild atherosclerotic disease. Abdominal vasculature as imaged is otherwise unremarkable. Pelvic Organs: Prostate and bladder as imaged are unchanged. Bones: No acute or suspicious osseous abnormality. Degenerative changes spine and pelvis. IMPRESSION: Small-bowel obstruction with transition point in the right abdomen. Trace associated ascites. No pneumatosis or free intraperitoneal gas. Dictated by Gavino Cesar MD @ 02/16/2025 2:30:49 PM Please note that all CT scans at this facility use dose modulation, iterative reconstruction, and/or weight-based dosing when appropriate to reduce radiation dose to as low as reasonably achievable. Dictated by: Gavino Cesar MD @ 02/16/2025 14:31:15 (Electronically Signed)
[2025-02-16] MEDS: LACTATED RINGERS 1000 ML 1,000 ML 125 ML IV (18:15)
--- NOTE | 2025-02-16 19:32 | PC.NURSE ---
End of Shift: admitted to med surg at 1630. VSS, afebrile. NPO. Independent in room.
[2025-02-16 19:46] VITALS: BP 110/68; PULSE 67; RESP 16; TEMP 36.8; O2SAT 95
[2025-02-16] MEDS: carBAMazepine 200 MG TABLET 400 MG PO (20:39)
[2025-02-16] MEDS: SIMVASTATIN 20 MG TABLET PO (20:39)
[2025-02-16] MEDS: SODIUM CHLORIDE 0.9 % (FLUSH) 10 ML SYRINGE 5 ML IVF (20:40)
[2025-02-16 22:31] VITALS: BP 107/71; PULSE 72; RESP 16; TEMP 36.9; O2SAT 94
[2025-02-16 22:50] VITALS: PULSE 72; RESP 16; O2SAT 94
[2025-02-17] MEDS: LACTATED RINGERS 1000 ML 1,000 ML 125 ML IV ×2 (01:05→08:41)
[2025-02-17 02:26] VITALS: BP 107/73; PULSE 71; RESP 16; TEMP 36.9; O2SAT 95
--- NOTE | 2025-02-17 04:45 | PC.NURSE ---
Pt up walking halls this night. Rested well. Stated pain is minimal with movement. NPO. VSS. Pleasant and cooperative.
[2025-02-17 07:00] VITALS: BP 126/72; PULSE 70; RESP 16; TEMP 36.8; O2SAT 94
[2025-02-17] MEDS: carBAMazepine 200 MG TABLET 400 MG PO (08:24)
[2025-02-17] MEDS: TAMSULOSIN HCL 0.4 MG CAPSULE 0.8 MG PO (08:24)
[2025-02-17 11:00] VITALS: BP 114/74; PULSE 77; RESP 16; TEMP 36.8; O2SAT 94
--- NOTE | 2025-02-17 11:32 | P.DS_ITS ---
DS: Providers Provider Date Seen: 02/17/25 Date of admission: 02/16/25 17:53 Primary care physician: Moreno Dangelo MD Admitting Clinician: Ann Jackson MD Consults: 02/16/25 17:53 Consult to Physician [CONS] Routine Comment: Consulting Provider: Jermaine Valle Has provider been notified: Yes Attending Physician on discharge: Domi Lunsford, [facility], [facility] [place] [facility] Date of Discharge: 02/17/25 DS: Diagnosis Discharge Diagnosis (1) Small bowel obstruction: Status: Acute Problem details: - H/o UC, colonoscopy last year, only abdominal surgery is h/o left inguinal hernia repair (pt thinks mesh was used, but is not sure). - general surgery aware - Ambulate x 3 tonight in [place] Day 2 of hospital stay, patient reports feeling better. Has been ambulating the hallways. Has had 3 bowel movements overnight and is passing gas. Patient is hoping he can discharge to home today. Tolerating clears thus far without increased pain or nausea/vomiting. Will discharge to home later this afternoon if continues to tolerate clears. Will continue on clears 24-36 hours then advancing to full liquids. Discussed gradual advancement in diet. Continuing to ambulate frequently throughout the day. Understands to return to ED if return of pain, nausea vomiting. (2) Ulcerative proctitis: Status: Chronic Problem details: - Sees [facility], vedolizumab infusions monthly, last one was 02/02/25 - not currently having a flare as far as patient is aware Close outpatient follow-up next week. (3) Epilepsy: Status: Chronic Problem details: - on carbamazepine, last seizure was 20 years ago - continue carbamazepine orally for now. If needs NGT or appears to not be absorbing well, this can be given IV instead Stable, continued on home medications. (4) Hyperlipidemia: Status: Chronic Problem details: - continue statin for now, hold if NGT placed Stable, continued on statin. DS: Summary Hospital Course Hospital Course: [age] year old male was admitted to the medical floor for management of SBO. Course of care and details as noted above. Was NPO without NGT overnight. Flatus with BM x3 overnight. Tolerating clears. Requesting to discharge to home. Understands slow, patient advancement in diet. Understands need to return to ED if not tolerating advancement in diet, return of pain, nausea vomiting. Remainder of chronic medical comorbidities were monitored and managed with home medications. Status at Discharge Functional status at discharge: independent ambulation Overall status at discharge: patient is back to baseline Time Spent with Patient Time attestation: Total time spent providing and/or coordinating discharge services: Time spent: Greater than 30 minutes Exam Narrative: Exam Narrative: PHYSICAL EXAM General: Pleasant, conversant, NAD Cardiovascular: RRR Pulmonary: No dyspnea Abdomen: Soft, nondistended, mild pain with palpation mid section. No guarding Neurological: Alert, answering questions appropriately Skin: Warm, dry. Const: Vital Signs, click to edit/add: Vital Signs - 24 hr 02/16/25 12:10 02/16/25 15:26 02/16/25 16:40 Temperature 97.8 F 98.4 F Pulse Rate [Left P ulse Oximeter] 75 Pulse Rate [Pulse Oximeter] 84 63 Respiratory Rate 16 16 18 Blood Pressure [Ri ght Arm] 117/80 Blood Pressure [Ri ght Upper Arm] 122/71 116/81 Pulse Oximetry 95 97 96 Oxygen Delivery Me thod Room Air Room Air Room Air 02/16/25 16:40 02/16/25 19:46 02/16/25 22:31 Temperature 98.2 F 98.4 F Pulse Rate [Left P ulse Oximeter] 67 72 Pulse Rate [Pulse Oximeter] Respiratory Rate 18 16 16 Blood Pressure [Ri ght Arm] 110/68 107/71 Blood Pressure [Ri ght Upper Arm] Pulse Oximetry 96 95 94 Oxygen Delivery Me thod Room Air Room Air Room Air 02/16/25 22:50 02/16/25 22:50 02/17/25 02:26 Temperature 98.5 F Pulse Rate [Left P ulse Oximeter] 72 71 Pulse Rate [Pulse Oximeter] Respiratory Rate 16 16 16 Blood Pressure [Ri ght Arm] 107/73 Blood Pressure [Ri ght Upper Arm] Pulse Oximetry 94 95 Oxygen Delivery Me thod Room Air Room Air 02/17/25 07:00 02/17/25 07:00 Temperature 98.3 F Pulse Rate [Left P ulse Oximeter] 70 Pulse Rate [Pulse Oximeter] Respiratory Rate 16 16 Blood Pressure [Ri ght Arm] 126/72 Blood Pressure [Ri ght Upper Arm] Pulse Oximetry 94 94 Oxygen Delivery Me thod Room Air Room Air DS: Data Data Completed and Pending Labs on day of discharge: Labs from last 24 hours 02/16/25 02/16/25 13:40 13:36 WBC 8.33 RBC 5.32 Hgb 15.9 Hct 47.6 MCV 90 MCH 30 MCHC 33 RDW Coeff of Dwight 12.3 Plt Count 261 Neut % (Auto) 64.4 Lymph % (Auto) 25.5 [place] % (Auto) 8.9 Eos % (Auto) 1.0 Baso % (Auto) 0.1 Neut # (Auto) 5.37 Lymph # (Auto) 2.12 [place] # (Auto) 0.70 Eos # (Auto) 0.08 Baso # (Auto) 0.01 Abs Immat Gran (auto) 0.01 Imm/Tot Granulo (auto) 0.1 Sodium 134 L Potassium 4.4 Chloride 99 Carbon Dioxide 25 Anion Gap 10 BUN 16 Creatinine 0.9 Estimated Creat Clear 90.19 Estimated GFR 97 Glucose 104 Calcium 8.6 C-Reactive Protein 2.6 H POC Creatinine 1.[address] abdomen pelvis: Attestation: I have reviewed the pertinent imaging results. Radiologist's impression: Lower chest: Unremarkable. Liver: No focal lesion. Trace perihepatic ascites near the dome. Spleen: Unremarkable. Pancreas: Unremarkable. Gallbladder and bile ducts: No calcified stones or biliary ductal dilatation. Kidneys: Stable left renal cyst. No urolithiasis or hydronephrosis. Adrenal glands: Unremarkable. GI tract: Multiple dilated fluid-filled small bowel loops in the abdomen with transition point in the right abdomen, consistent with obstruction. Small bowel dilatation measures up to 4.2 cm. Mild right lower quadrant fluid and subtle mesenteric heterogeneity. No pneumatosis or free intraperitoneal gas. Normal appendix. Distal colonic diverticulosis without evidence of acute diverticulitis. Lymph nodes: No pathologic lymphadenopathy. Vascular structures: Mild atherosclerotic disease. Abdominal vasculature as imaged is otherwise unremarkable. Pelvic Organs: Prostate and bladder as imaged are unchanged. Bones: No acute or suspicious osseous abnormality. Degenerative changes spine and pelvis. IMPRESSION: Small-bowel obstruction with transition point in the right abdomen. Trace associated ascites. No pneumatosis or free intraperitoneal gas. Abdominal x-ray: Attestation: I have reviewed the pertinent imaging results. Radiologist's impression: Multiple dilated small bowel loops with associated air-fluid levels at varying locations throughout the abdomen, with small bowel dilatation measuring greater than 4 cm. No evidence of free intraperitoneal gas. Postoperative changes in the epigastric region and pelvis. Soft tissues elsewhere as imaged are unremarkable. Lung bases are clear. Degenerative changes spine and pelvis. IMPRESSION: Findings worrisome for small bowel obstruction. No evidence of free intraperitoneal gas. CT of the abdomen and pelvis with IV contrast may prove useful for further evaluation. Discharge Plan Discharge Disposition: Home, Self-Care Date of Admission: 02/16/25 17:53 Attending Provider on Discharge: Domi Lunsford Primary Care Provider: Moreno Dangelo Condition: Improved Anticipated Discharge Date/Time: 02/17/25 16:00 Discharge Medications: Continued Entyvio 300 mg recon soln 300 mg IV Q4W Rx Instructions: administer over 30 mins tamsulosin 0.4 mg capsule 0.8 mg PO DAILY Qty: 180 3RF citalopram 20 mg tablet 20 mg PO DAILY Qty: 90 3RF carbamazepine 200 mg tablet 200 - 400 mg PO TID Qty: 450 3RF Rx Instructions: take 2 tabs in AM, 1 tab midday, and 2 tabs in PM multivitamin [Multiple Vitamins] Tablet 1 tab PO QDAY simvastatin 20 mg tablet 20 mg PO HS Discharge Orders: Discharge Order (Routine); Ordered 02/17/25 Ordered By: Domi Lunsford Patient Education: Bowel Obstruction (GEN) Additional Instructions: Continue with clear liquid diet 24-36 hours then advance to a full liquid diet. If recurring pain or nausea, return to ED. Follow up with [facility] next week. Activity Level: Activity as Tolerated Activity Detail: Continue to ambulate frequently throughout the day Diet Detail: Clear -> Full liquid Follow Up Appointments: Moreno Dangelo MD [Primary Care Provider] - (Post hospital follow up 7-10 days) Forms: [facility] Info Instructions
[2025-02-17] MEDS: ACETAMINOPHEN 325 MG TABLET 975 MG PO (11:48)
[2025-02-17] MEDS: carBAMazepine 200 MG TABLET PO (14:30)
[2025-02-17 15:00] VITALS: BP 139/76; PULSE 69; RESP 16; TEMP 36.8; O2SAT 93
--- NOTE | 2025-02-17 18:18 | PC.NURSE ---
PATIENT ALERT AND ORIENTED, UP AD [place] TOLERATING WELL, TOLERATING CLD, PT DECLINES INCREASE IN PAIN AND NAUSEA WITH CLD, RATING PAIN 1-2/10 IN ABDOMEN WHICH IS NOT PRESENT AT REST BUT IS PRESENT WITH ACTIVITY, PATIENT VERBALIZED UNDERSTANDING OF DISCHARGE INFORMATION, SENT PATIENT HOME WITH MENU A GUIDE TO CLD AND FULL LIQUID DIET, IV REMOVED CATHETER INTACT, DISCHARGED TO HOME AT 1710 AND WALKED OUT WITH FRIEND.
== END 2025-02-17 17:10 | disposition home or self-care (01) | DRG 247 ==
LOC: ED 14:40 → MEDSURG 16:13
PROVIDERS: Admitting Provider Family Medicine; Emergency Provider Family Medicine; PCP Family Medicine; Visit Provider Family Medicine
DX: K56.609 Unspecified intestinal obstruction, unspecified as to partial versus complete obstruction (principal); K51.20 Ulcerative (chronic) proctitis without complications; G40.909 Epilepsy, unspecified, not intractable, without status epilepticus; E78.5 Hyperlipidemia, unspecified; Z86.0101 Personal history of adenomatous and serrated colon polyps
CPT/HCPCS: 36415; 74019; 74177; 80048; 82565; 85025; 86140; 99285; A9270; J7030; J7120; Q9967

== ENCOUNTER 2025-02-22 13:10 | Emergency (ER) | payer BC, SELFPAY ==
--- OUTSIDE RECORDS SUMMARY | 2025-02-22 13:12 | XMS_ITS | Clinical Summary ---
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 Gender Identity Not on file Sexual Orientation [...] lb 9.6 oz) 10/14/2018 12:39 P M STUDENT SPECIALIST Height 190.5 cm (6' 3) 10/14/2018 12:39 PM STUDENT SPECIALIST Body Mass Index 30.32 10/14/2018 12:39 PM STUDENT SPECIALIST Plan of Treatment Health Maintenance Due Date [...] series) 2038 Tdap Completed 07/03/2022, 08/08/[address] [place] [address] [place] [address] OF NON-MO-ITS BLUE CROSS OF NON-MN-ITS Advance Directives * Full Code (Latest Code Status on File) Date Activated Date Inactivated Comments 03/28/2015 9:34 AM 03/28/2015 6:58 PM * Full Code Date Activated Date Inactivated Comments 03/24/2014 8:44 AM 03/24/2014 6:52 PM Care Teams Coverstitch Binder Relationship Specialty Start Date End Date Cyrus Dangelo PCP - General 02/26/07
[2025-02-22 13:15] VITALS: BP 140/80; PULSE 82; RESP 16; TEMP 37.1; O2SAT 96; BMI 29.2
--- NOTE | 2025-02-22 13:38 | ED.ABDPAIN ---
HPI - Abdominal Pain General Chief Complaint: Abdominal Pain Stated Complaint: bloating/constipation Time Seen by Provider: 02/22/25 13:11 History of Present Illness HPI narrative: This 59-year-old male on was seen in the hospital for a bowel obstruction about a week ago and was discharged 6 days ago. He did clear liquids for the next 3 days and then began eating some solid foods. He states that he had similar symptoms yesterday with no passage of stool or gas and a distended abdomen. Last night he began to have quite a bit of liquid stool passing and states that he feels better now. He has had a inguinal hernia repair and had a laparoscopy surgery in the past. He arrives here with normal vital signs. Related Data Home Medications ?Medication ?Instructions ?Recorded ?Confirmed multivitamin (Multiple Vitamins 1 tab PO QDAY 11/07/22 02/22/25 tablet) vedolizumab 300 mg intravenous 300 mg IV Q4W 10/20/24 02/16/25 solution (Entyvio) simvastatin 20 mg tablet 20 mg PO HS 02/16/25 02/22/25 Previous Rx's ?Medication ?Instructions ?Recorded carbamazepine 200 mg tablet 200 - 400 mg (1 - 2 x 200 mg) PO 10/20/24 TID #450 tabs citalopram 20 mg tablet 20 mg PO DAILY #90 tabs 10/20/24 tamsulosin 0.4 mg capsule 0.8 mg (2 x 0.4 mg) PO DAILY #180 10/20/24 caps apixaban 5 mg (74 tabs) tablets in See Rx Instructions PO .COMPLEX 02/22/25 a dose pack (Octoplus DVT-PE Treat #74 ea 30D Start) Allergies Allergy/AdvReac Type Severity Reaction Status Date / Time codeine Allergy Mild Headache Verified 02/22/25 13:20 COLD MEDICINE Allergy Mild Uncoded 01/28/25 12:39 Review of Systems Status of ROS Reports: 10 or more systems reviewed and unremarkable except as noted in History and below Narrative Constitutional: No fevers, no weight gain or loss. Eyes: No discharge. No vision changes. HENT: No congestion, no sore throat, no ear pain. Cardiovascular: No chest pain, no palpitations. Respiratory: No shortness of breath, no wheezes, no cough. Gastrointestinal: No vomiting. Abdominal symptoms as described above. Genitourinary: No dysuria, no hematuria. Musculoskeletal: Normal range of motion. Skin: No rashes, no pruritis. Neurological: No dizziness, weakness, sensory change, speech change. Endo/Heme/Allergies: No bruising or bleeding. No polydipsia. Pysch: no suicidality, no anxiety, no insomnia. All other systems reviewed and are negative. [facility] Medical History (Updated 02/22/25 @ 14:50 by Kerwin Gottlieb MD) Tobacco use (09/01/13) ?Z72.0 - Tobacco use (ICD-10) Erectile dysfunction ?N52.9 - Male erectile dysfunction, unspecified (ICD-10) Hyperlipidemia ?E78.5 - Hyperlipidemia, unspecified (ICD-10) MARYLU (generalized anxiety disorder) ?F41.1 - Generalized anxiety disorder (ICD-10) Chronic aneurysm of right popliteal vein ?I86.8 - Varicose veins of other specified sites (ICD-10) Low back pain ?M54.50 - Low back pain, unspecified (ICD-10) Urinary retention ?R33.9 - Retention of urine, unspecified (ICD-10) Adenomatous colon polyp ?D12.6 - Benign neoplasm of colon, unspecified (ICD-10) Simple obesity (09/01/13) ?E66.9 - Obesity, unspecified (ICD-10) Epilepsy (09/01/13) ?G40.909 - Epilepsy, unspecified, not intractable, without status epilepticus (ICD-10) Achalasia of esophagus ?K22.0 - Achalasia of cardia (ICD-10) Seizure disorder ?G40.909 - Epilepsy, unspecified, not intractable, without status epilepticus (ICD-10) Superficial phlebitis and thrombophlebitis of right lower extremity ?I80.01 - Phlebitis and thrombophlebitis of superficial vessels of right lower extremity (ICD-10) Malignant neoplasm of urinary bladder (09/01/13) ?C67.9 - Malignant neoplasm of bladder, unspecified (ICD-10) Ulcerative proctitis ?K51.20 - Ulcerative (chronic) proctitis without complications (ICD-10) Surgical History (Updated 02/16/25 @ 17:08 by Ann Jackson MD) Status post tonsillectomy and adenoidectomy ?Z90.89 - Acquired absence of other organs (ICD-10) History of esophageal surgery ?Z98.890 - Other specified postprocedural states (ICD-10) History of hernia repair (09/01/13) ?Z98.890 - Other specified postprocedural states (ICD-10) ?Z87.19 - Personal history of other diseases of the digestive system (ICD-10) Social History (Updated 02/16/25 @ 17:13 by Ann Jackson MD) Narrative: Lives alone. Has support in the area. Works for [employer], [employer] support. Quit tobacco use >20 years ago. Used to smoke 1/2ppd for 25 years. Rare EtOH. Denies recreational drug. FULL CODE. What is your current living situation?: I presently have a place to live Problems where you live: no known problems Problems where you live details: none In the past 12 months, utilities in danger of being shut off: no In past 12 months, lack of transportation kept you from medical appts, meetings, work, or getting things needed for daily living: no In the past 12 mos, have been you worried that your food would run out before you had money to buy more?: never true In the past 12 mos, the food you bought just didn't last and you didn't have money to buy more?: never true Highest level of school completed/degree received: Associate degree: occupational, technical, vocational program Smoking Status: Never smoker How often do you have a drink containing alcohol: never How many standard drinks containing alcohol do you have on a typical day: 1 or 2 AUDIT-C Alcohol total score: 0 Non-prescribed substance use: denies use Caffeine: Yes (coffee) How often does anyone, including family, friends and others, physically hurt you: never How often does anyone, including family, friends and others, insult or talk down to you: never How often does anyone, including family, friends and others, threaten you with harm: never How often does anyone, including family, friends and others, scream or curse at you: never service: No Exam Narrative: Exam Narrative: Constitutional: Well-developed, well-nourished, no acute distress. HEENT: Normocephalic, atraumatic. Neck: Normal range of motion. Nontender. Supple. Heart: Regular. No murmurs. Normal rate. Intact distal pulses. Lungs: Clear to auscultation. No chest discomfort. No wheezes, rhonchi, or rales. Abdomen: Normal bowel sounds. Nontender. No rebound tenderness. Genitalia: Deferred. Back: No midline tenderness. Normal range of motion. Extremities: Normal range of motion. No injury. Skin: Intact. No rash. Warm. No erythema or pallor. Neurologic: No altered sensation. No weakness. Alert and oriented. Psychiatric: No suicidality. No anxiety or depression. No insomnia. Nursing notes and vitals signs are reviewed. Const: Vital Signs, click to edit/add: Vital Signs - 24 hr 02/22/25 13:15 Temperature 98.8 F Pulse Rate [Pulse Oximeter] 82 Respiratory Rate 16 Blood Pressure [Ri t Upper Arm] 140/80 H Pulse Oximetry 96 Oxygen Delivery Me thod Room Air Course Vital Signs Vital signs: Initial Vital Signs Temperature 98.8 F 02/22/25 13:15 Temperature Source Temporal Artery Scan 02/22/25 13:15 Pulse Rate 82 02/22/25 13:15 Respiratory Rate 16 02/22/25 13:15 Blood Pressure 140/80 H 02/22/25 13:15 Blood Pressure Mean 100 02/22/25 13:15 Blood Pressure Position Sitting 02/22/25 13:15 Pulse Oximetry 96 02/22/25 13:15 Oxygen Delivery Method Room Air 02/22/25 13:15 Vital Signs Temperature 98.8 F 02/22/25 13:15 Pulse Rate 82 02/22/25 13:15 Respiratory Rate 16 02/22/25 13:15 Blood Pressure 140/80 H 02/22/25 13:15 Pulse Oximetry 96 02/22/25 13:15 Oxygen Delivery Method Room Air 02/22/25 13:15 Temperature 98.8 F 02/22/25 13:15 Pulse Rate 82 02/22/25 13:15 Respiratory Rate 16 02/22/25 13:15 Blood Pressure 140/80 H 02/22/25 13:15 Pulse Oximetry 96 02/22/25 13:15 Oxygen Delivery Method Room Air 02/22/25 13:15 MDM - Abdominal Pain MDM Narrative Medical decision making narrative: He this patient was hospitalized last week for a small-bowel obstruction which has resolved but similar symptoms recurred yesterday. Today he states that he feels back to normal. An abdominal x-ray is obtained and shows no sign of obstruction. He had an IV in place in his left antecubital fossa and now has some swelling and firmness in the area where the vein was cannulated. The patient states that he has a history of blood clot a couple times in the past and was temporarily on anticoagulants. I can feel the parameters of the clot which extend about 4 cm on either side of the joint of his antecubital fossa. There is no palpable tenderness or clot or sign of erythema proximal to this area. Seeing the presence of such a clot and history of thrombus that he describes in the past, it seems best to prescribe an anticoagulant. He is traveling to [place] in a couple weeks also and should have some protection in case something would progress. I advised the patient to follow-up with his primary physician regarding ongoing management. Discharge Plan Discharge Clinical Impression: Abdominal pain, Blood clot in arm Patient Disposition: Home, Self-Care Condition: Stable Additional Instructions: Take Eliquis as prescribed. Follow up with primary physician for ongoing management. Return if worsening. Prescriptions: New Eliquis DVT-PE Treat 30D Start 5 mg (74 tabs) tablets,dose pack See Rx Instructions PO .COMPLEX Qty: 74 0RF Rx Instructions: orally per package directions No Action Entyvio 300 mg recon soln 300 mg IV Q4W Rx Instructions: administer over 30 mins tamsulosin 0.4 mg capsule 0.8 mg PO DAILY Qty: 180 3RF citalopram 20 mg tablet 20 mg PO DAILY Qty: 90 3RF carbamazepine 200 mg tablet 200 - 400 mg PO TID Qty: 450 3RF Rx Instructions: take 2 tabs in AM, 1 tab midday, and 2 tabs in PM multivitamin [Multiple Vitamins] Tablet 1 tab PO QDAY simvastatin 20 mg tablet 20 mg PO HS Follow Up/Referrals: Moreno Dangelo MD [Primary Care Provider] - Stand Alone Forms: [employer] Info Instructions
--- OUTSIDE RECORDS SUMMARY | 2025-02-22 14:05 | XMS_ITS | Clinical Summary ---
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 Gender Identity Not on file Sexual Orientation [...] lb 9.6 oz) 10/14/2018 12:39 P M FINANCIAL COMPLIANCE OFFICER Height 190.5 cm (6' 3) 10/14/2018 12:39 PM FINANCIAL COMPLIANCE OFFICER Body Mass Index 30.32 10/14/2018 12:39 PM FINANCIAL COMPLIANCE OFFICER Plan of Treatment Health Maintenance Due Date [...] series) 2038 Tdap Completed 07/03/2022, 08/08/[address] [place] [address] OF NON-AL-ITS BLUE CROSS OF NON-MN-ITS Advance Directives * Full Code (Latest Code Status on File) Date Activated Date Inactivated Comments 03/28/2015 9:34 AM 03/28/2015 6:58 PM * Full Code Date Activated Date Inactivated Comments 03/24/2014 8:44 AM 03/24/2014 6:52 PM Care Teams Ticket Dispatcher Relationship Specialty Start Date End Date Cyrus Dangelo PCP - General 02/26/07
[2025-02-22 15:00] VITALS: BP 136/78; PULSE 82; RESP 20; O2SAT 98
== END 2025-02-22 15:02 | disposition home or self-care (01) ==
PROVIDERS: Emergency Provider Emergency Medicine Emergency Medical Services; PCP Family Medicine
DX: R10.9 Unspecified abdominal pain (principal); I82.702 Chronic embolism and thrombosis of unspecified veins of left upper extremity
CPT/HCPCS: 74019; 99283; 99284

== ENCOUNTER 2025-11-08 09:35 | Outpatient (CLI) | payer BC, SELFPAY | END 2025-11-08 09:36 | disposition home or self-care (01) | LOC: NFLDREF 11-14 18:11 | PROVIDERS: PCP Family Medicine; Referring Provider Family Medicine; Visit Provider Family Medicine | DX: E78.5 Hyperlipidemia, unspecified (principal); Z00.00 Encounter for general adult medical examination without abnormal findings | CPT/HCPCS: 80053; 80061; 80156; G0103 ==